=== PATIENT | female | born 1955 | race Caucasian/White ===

== ENCOUNTER → 2017-09-20 | Outpatient (CLI) | payer OTHER ==
--- NOTE | 2017-09-21 08:32 | RADIOLOGY IMAGING REPORT ---
[place] [facility] [place] NAME: RITO CORDERO : [id number] MR: [id number] V: [id number] EXAM DATE: [id number] ORDERING PHYSICIAN: REEMA CHOWDHURY TECHNOLOGIST: Anahy Nichole PROCEDURE:BILATERAL DIGITAL SCREENING MAMMOGRAM WITH CAD ASSISTED INTERPRETATION & 3D TOMOSYNTHESIS COMPARISON:Prior mammograms dated 08/30/16, 08/27/15, 08/14/14, 08/01/13, 07/11/12, 07/08/11 INDICATIONS:screening FINDINGS: Moderately dense fibroglandular tissue is seen throughout the breasts. The parenchymal pattern has remained stable allowing for difference in mammographic technique & patient positioning. There is no evidence of malignant appearing mass, malignant appearing calcification or other secondary sign of malignancy in either breast. DIAGNOSTIC CATEGORY 1--NEGATIVE. RECOMMENDATIONS: ROUTINE MAMMOGRAM AND CLINICAL EVALUATION. IMPRESSION: BIRADS 1: Negative. No significant abnormality is seen. Dictated by: Pricilla Duff M.D. on 09/20/2017 at 17:45 Transcribed by: GELA on 09/21/2017 at 6:42 Approved by: Pricilla Duff M.D. on 09/21/2017 at 8:31 [facility]
== END ==
LOC: MAMO 01:28
PROVIDERS: ATTEND Advanced Practice Midwife
DX: Z12.31 Encounter for screening mammogram for malignant neoplasm of breast (principal)
CPT/HCPCS: 77063; 77067